=== PATIENT | male | born 1980 | race Caucasian/White ===

== ENCOUNTER 2018-01-10 12:32 | Emergency (ER) | payer OTHER ==
[2018-01-10 12:54] VITALS: BP 134/78; PULSE 76; RESP 16; TEMP 98; O2SAT 100
--- NOTE | 2018-01-10 13:38 | ED PDOC ---
Lower Extremity Pain/Injury Time Seen by Provider: 01/10/18 12:57 Chief Complaint (Nursing): Lower Extremity Problem/Injury Chief Complaint (Provider): Bilateral Foot Pain History Per: Patient Onset/Duration Of Symptoms: Other (ongoing for 8 months) Current Symptoms Are (Timing): Still Present Additional Complaint(s): 37 year old male presents to the ED for evaluation of chronic bilateral heel pain for the past eight months, right worse than left. 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 Denies taking any medications prior to arrival and other complaints. He rates current pain as 5/10. PMD: none Past Medical History Reviewed: Historical Data, Nursing Documentation, Vital Signs Vital Signs: Last Vital Signs Temp 98.0 F 01/10/18 12:52 Pulse 76 01/10/18 12:52 Resp 16 01/10/18 12:52 BP 134/78 01/10/18 12:52 Pulse Ox 100 01/10/18 12:52 - Medical History PMH: No Chronic Diseases - Surgical History Surgical History: No Surg Hx - Family History Family History: States: No Known Family Hx - Living Arrangements Living Arrangements: With Family - Social History Current smoker - smoking cessation education provided: Yes Alcohol: Social Drugs: Denies - Home Medications Home Medications: Ambulatory Orders Medication Instructions Recorded Dicyclomine [Bentyl] 10 mg PO QID #20 cap 02/13/16 Famotidine [Pepcid] 20 mg PO BID #14 tab 02/13/16 Ibuprofen [Motrin Tab] 800 mg PO Q8 PRN #20 tab 01/10/18 - Allergies Allergies/Adverse Reactions: Allergies Allergy/AdvReac Type Severity Reaction Status Date / Time No Known Allergies Allergy Verified 01/10/18 12:51 Wells Criteria for PE - Wells Criteria for Pulmonary Embolism Clinical Signs and Symptoms of DVT: No P.E is #1 Diagnosis, or Equally Likely: No Heart Rate >100: No Immobilization at least 3 days;Surgery previous 4 weeks: No Previous, objectively diagnosed PE or DVT: No Hemoptysis: No Malignancy w/treatment within 6 months, or palliative: No Total Score: 0 Review of Systems ROS Statement: Except As Marked, All Systems Reviewed And Found Negative Musculoskeletal: Positive for: Foot Pain (bilateral heel pain, right worse than left) Physical Exam - Reviewed Nursing Documentation Reviewed: Yes Vital Signs Reviewed: Yes - Physical Exam Appears: Positive for: Well, Non-toxic, No Acute Distress Head Exam: Positive for: ATRAUMATIC, NORMOCEPHALIC Skin: Positive for: Normal Color. Negative for: Rash Eye Exam: Positive for: Normal appearance Extremity: Positive for: Normal ROM, Tenderness (mild tenderness to bilateral heels, right > left, no skin breakdown or signs of infection ) Neurologic/Psych: Positive for: Alert, Oriented (x3) - ECG O2 Sat by Pulse Oximetry: 100 Pulse Ox Interpretation: Normal - Other Rad x-ray bilateral feet X-Ray: Interpreted by Me, Viewed By Me X-Ray Interpretation: no fx, no dis Medical Decision Making Medical Decision Making: Time: 1331 Initial Impression: 37 year old male with chronic bilateral heel pain Initial Plan: --Ibuprofen 600mg PO --XR left foot --XR right foot Scribe Attestation: Documented by Esperanza Zarate, acting as a scribe for Estelita Johnson PA-C Provider Scribe Attestation: All medical record entries made by the Scribe were at my direction and personally dictated by me. I have reviewed the chart and agree that the record accurately reflects my personal performance of the history, physical exam, medical decision making, and the department course for this patient. I have also personally directed, reviewed, and agree with the discharge instructions and disposition. Disposition - Clinical Impression Clinical Impression: Plantar fasciitis, bilateral - Patient ED Disposition Is Patient to be Admitted: No Counseled Patient/Family Regarding: Studies Performed, Diagnosis, Need For Followup, Rx Given - Disposition Referrals: Podiatry Clinic [Outside] Disposition: Routine/Home Disposition Time: 14:56 Condition: STABLE Additional Instructions: Take rx meds as directed. Follow up with podiatry clinic. Prescriptions: Ibuprofen [Motrin Tab] 800 mg PO Q8 PRN #20 tab PRN Reason: Pain, Moderate (4-7) Instructions: Heel Pain (Caused by Plantar Fasciitis), Plantar Fasciitis Exercises Forms: [facility] ([place]) Print Language: [place]
--- NOTE | 2018-01-10 15:03 | RAD ---
Date of service: 01/10/2018 PROCEDURE: Bilateral Feet Radiographs. HISTORY: heel pain COMPARISON: None. FINDINGS: BONES: Right Foot: No fracture identified. Small plantar calcaneal spur. Left Foot: Normal. No fracture. JOINTS: Right Foot: Normal. No osteoarthritis. Left Foot: Normal. No osteoarthritis. SOFT TISSUES: Right Foot: Thickening of the soft tissues plantar aspect right heel. The overall appearance suggests plantar fasciitis. Left Foot: Normal. OTHER FINDINGS: None. IMPRESSION: Right calcaneal spur and thickening of adjacent soft tissues raise the possibility of plantar fasciitis. No acute findings.
== END 2018-01-10 15:00 | disposition home or self-care (01) ==
LOC: H.ER 12:32
DX: M72.2 Plantar fascial fibromatosis (principal); F17.200 Nicotine dependence, unspecified, uncomplicated